=== PATIENT | male | born 1975 | race Caucasian/White ===

== ENCOUNTER 2017-11-16 04:43 | Emergency (ER) | payer MEDICAID ==
[~2017-11-16] VITALS: Ht 167.6 cm; Wt 63.0 kg
[2017-11-16] MEDS ORDERED: LORAZEPAM 2MG/ML CPJ IM STA (04:52)
[2017-11-16] MEDS ORDERED: HALOPERIDOL LACTATE 5MG/ML VIAL IM STA (04:52)
[2017-11-16] MEDS ORDERED: SODIUM CHLORIDE 0.9% 1,000 ML IV ONE (04:52)
[2017-11-16 05:59] LABS: BASOPHILS % 0.7 % (0.0-2.0); EOSINOPHILS % 0.5 % (0.0-5.0); HEMATOCRIT. 39.5 % (42.0-52.0); HEMOGLOBIN. 13.6 g/dL (14.0-18.0); LYMPHOCYTES % 17.4 % (20.0-50.0); MEAN CORPUSCULAR VOLUME 87.1 fL (80.0-94.0); MEAN PLATELET VOLUME 8.3 fl (7.4-10.4); MONOCYTES % 6.3 % (2.0-8.0); NEUTROPHILS % 75.1 % (40.0-76.0); PLATELET 273 x1000/uL (130-400); RED BLOOD CELL COUNT 4.54 mill/uL (4.7-6.1); RED CELL DISTRIBUTION WIDTH 14.6 % (11.6-14.6)
[2017-11-16 06:03] LABS: CHLORIDE 104 mEq/L (98-107)
[2017-11-16 06:07] LABS: AMMONIA 27 uMol/L (<32); ETHANOL BLOOD < 10 mg/dL
[2017-11-16 12:05] VITALS: BP 125/68
== END 2017-11-16 12:15 | disposition home or self-care (01) ==
LOC: ER 04:43
DX: T43.621A Poisoning by amphetamines, accidental (unintentional), initial encounter (principal); F12.10 Cannabis abuse, uncomplicated; F17.200 Nicotine dependence, unspecified, uncomplicated; Y92.89 Other specified places as the place of occurrence of the external cause; Z87.81 Personal history of (healed) traumatic fracture
CPT/HCPCS: 36415; 80053; 80307; 80329; 82140; 82962; 85025; 96360; 96372; 99284; G0482; J1630; J2060; J7030; Z7610; 96361

== ENCOUNTER 2019-04-21 22:33 | Emergency (ER) | payer MEDICAID ==
[~2019-04-21] VITALS: Ht 172.7 cm; Wt 72.0 kg
[2019-04-22 03:45] VITALS: BP 121/75
== END 2019-04-22 04:01 | disposition home or self-care (01) ==
LOC: ER 22:33
DX: F15.180 Other stimulant abuse with stimulant-induced anxiety disorder (principal)
CPT/HCPCS: 99283